=== PATIENT | female | born 1990 | race African-American/Black ===

== ENCOUNTER 2016-10-22 10:02 | Emergency (ER) | payer OTHER ==
[2016-10-22 10:10] VITALS: BP 122/82; TEMP 97.8; BMI 31.1
--- NOTE | 2016-10-22 10:46 | ED.PDOC ---
General ED Provider: Dr. JEFF HAMILTON JR Chief Complaint: Tooth Problem Stated Complaint: PAINFUL RED RAISED AREA INSIDE LEFT UPPER ROOF OF MOUTH NEAR TOOTH WITH CAVITY[End]2 days 97.8 67 16 98% 122/82 12/22[ End ]RAISED AREA ROOF OF MOUTH[ End ]at left upper canine Time Seen by Physician: 10:46 Mode of Arrival: Walk-In Information Source: Patient Exam Limitations: No limitations Primary Care Provider: TATE ELIZONDO Nursing and Triage Documentation Reviewed and Agree: No Review of Systems - Review Of Systems Constitutional: Reports: No symptoms Eyes: Reports: No symptoms Ears, Nose, Mouth, Throat: Reports: Mouth pain, Mouth swelling Respiratory: Reports: No symptoms Cardiac: Reports: No symptoms GI: Reports: No symptoms : Reports: No symptoms Musculoskeletal: Reports: No symptoms Skin: Reports: No symptoms Neurological: Reports: No symptoms Endocrine: Reports: No symptoms Hematologic/Lymphatic: Reports: No symptoms All Other Systems: Other Past Medical History - Past Medical History Previously Healthy: Yes Endocrine: Reports: None Cardiovascular: Reports: None Respiratory: Reports: None Hematological: Reports: None Gastrointestinal: Reports: None Genitourinary: Reports: None Neuro/Psych: Reports: Bipolar Disorder Musculoskeletal: Reports: None Cancer: Reports: None Last Menstrual Period: 2 WEEKS Other Pertinent Past Medical History: TONSILECTOMY - Surgical History General Surgical History: Reports: Tonsillectomy - Family History Family History: Reports: Unknown - Social History Smoking Status: Current some day smoker Hx Substance Use: No Alcohol Screening: Occasionally - Immunizations Tetanus Shot up to Date: Yes Physical Exam - Physical Exam Appearance: Ill-appearing Ill-appearing: Mild Pain Distress: Moderate (left upper palate with raised lesion patient states tende hard- soft on exam) Eyes: KIRTI, EOMI, Conjunctiva clear ENT: Ears normal, Nose normal, Oropharynx normal Neck: Supple Respiratory: Airway patent, Breath sounds clear, Breath sounds equal, Respirations nonlabored Cardiovascular: RRR, Pulses normal, No rub, No murmur GI/: Soft, Nontender, No masses, Bowel sounds normal, No Organomegaly Musculoskeletal: Normal strength, ROM intact, No edema, No calf tenderness Skin: Warm, Dry, Normal color Neurological: Sensation intact, Motor intact, Reflexes intact, Cranial nerves intact, Alert, Oriented Psychiatric: Affect appropriate, Mood appropriate Critical Care Note - Critical Care Note Total Time (mins): 0 Course - Course Vital Signs: Temp Pulse Resp BP Pulse Ox 10/22/16 10:06 97.8 F 67 16 122/82 98 Departure - Departure Time of Disposition: 10:46 Disposition: HOME SELF-CARE Discharge Problem: Cellulitis of canine space of mouth Instructions: Cellulitis (ED), Gingivostomatitis (ED) Condition: Good Pt referred to PMD for follow-up: Yes Additional Instructions: follow up with dentist as soon as possible penicillin antibiotic until gone Motrin for pain [place] for pain not relieved return if fever over 101.0 Prescriptions: Hydrocodone Bit/Acetaminophen [[place] 5-325] 1 - 2 tab PO Q6HR PRN #12 tablet PRN Reason: pain Penicillin V Potassium 500 mg PO QID #28 tablet Allergies/Adverse Reactions: Allergies seafood Allergy (Severe, Uncoded 06/20/15 14:15) n/v, problems breathing Notified pt to get medical alert necklace Home Medications: Ambulatory Orders Hydrocodone Bit/Acetaminophen [[place] 5-325] 1 - 2 tab PO Q6HR PRN #12 tablet 03/31 Penicillin V Potassium 500 mg PO QID #28 tablet 10/22/16
== END 2016-10-22 11:08 | disposition home or self-care (01) ==
LOC: ED 10:02
DX: K12.2 Cellulitis and abscess of mouth (principal); F17.210 Nicotine dependence, cigarettes, uncomplicated
CPT/HCPCS: 99282

== ENCOUNTER 2018-03-07 10:05 | Emergency (ER) | payer OTHER ==
[2018-03-07 10:09] VITALS: BP 137/103; TEMP 98.4; BMI 29.5
[2018-03-07] MEDS ORDERED: ZOFRAN TAB PO STA (10:20)
--- NOTE | 2018-03-07 11:32 | CT ---
Exam: CT scan of the abdomen pelvis without contrast. Date: 03/07/2018. Comparison: 03/30/2010. HISTORY: Abdominal pain and vomiting. TECHNIQUE: Helical scan of the abdomen pelvis was performed without contrast. FINDINGS: The lung bases are clear. The lower lumbar spine and bony pelvis are within normal limits , with an incidental left L5-S1 pseudoarthrosis. The spleen and liver have a uniform attenuation. Gallbladder, stomach, pancreas and adrenal glands a re normal. The kidneys have a normal morphology. No calculi or hydronephrosis is seen. No retroper itoneal adenopathy is present. Aorta does not exceed 3 cm. The small bowel and appendix are normal. The colon, pelvic sidewall and bladder are normal. The uterus and adnexa are normal. There is no free pelvic fluid. The rectum inguinal regions are normal. Impression: No acute findings in the abdomen or pelvis.
--- NOTE | 2018-03-07 12:15 | ED.PDOC ---
General ED Provider: Dr. BROWN PORTER-ER Chief Complaint: Abdominal Pain Stated Complaint: im worried about court date coming up--im nervous and i cant eat Time Seen by Physician: 12:13 Mode of Arrival: Walk-In Information Source: Patient Exam Limitations: No limitations Primary Care Provider: TATE ELIZONDO Nursing and Triage Documentation Reviewed and Agree: Yes Does patient meet sepsis criteria?: No System Inflammatory Response Syndrome: Not Applicable Sepsis Protocol: For patient's 13 years and over: Temp is 96.8 and below OR 101 and greater Pulse >90 BPM Resp >20/minute Acutely Altered Mental Status Are patient's symptoms suggestive of a new infection, such as: -Pneumonia -Skin, Soft Tissue -Endocarditis -UTI -Bone, Joint Infection -Implantable Device -Acute Abdominal Infection -Wound Infection -Meningitis -Blood Stream Catheter Infection -Unknown Psychological Complaint Exam - Psychiatric Complaint/Exam Patient Complains Of: Present: Other (anxiety) Onset/Duration: few days Symptoms Are: Still present Timing: Intermittent Episodes Lasting: Days Initial Severity: Mild Current Severity: Moderate Character: Present: Fearful, Anxious Associated Signs And Symptoms: Denies: Hostile, Confused, Hallucinating, Paranoid behavior, Sleep disturbance, Appetite change Patient In Custody Of Police: No Social Withdrawal Present: No Social Isolation Present: No Prior Suicide Attempt: No Injury From Prior Suicide Attempt: No Related Surgical History: Reports: None Patient Uncooperative For Exam: No Mood: Present: Anxious Appearance: Present: Clean Thought Process: Present: Logical Insight: Present: Poor Memory: Intact Judgement: Normal Danger To Others: No Differential Diagnoses: Anxiety Review of Systems - Review Of Systems Constitutional: Reports: No symptoms Eyes: Reports: No symptoms Ears, Nose, Mouth, Throat: Reports: No symptoms Respiratory: Reports: No symptoms Cardiac: Reports: No symptoms GI: Reports: Nausea : Reports: No symptoms Musculoskeletal: Reports: No symptoms Skin: Reports: No symptoms Neurological: Reports: No symptoms Endocrine: Reports: No symptoms Hematologic/Lymphatic: Reports: No symptoms All Other Systems: Reviewed and Negative Past Medical History - Past Medical History Previously Healthy: Yes Endocrine: Reports: None Cardiovascular: Reports: None Respiratory: Reports: None Hematological: Reports: None Gastrointestinal: Reports: None Genitourinary: Reports: None Neuro/Psych: Reports: Bipolar Disorder Musculoskeletal: Reports: None Cancer: Reports: None Last Menstrual Period: 02/27/18 Other Pertinent Past Medical History: TONSILECTOMY - Surgical History General Surgical History: Reports: Tonsillectomy - Family History Family History: Reports: Unknown - Social History Smoking Status: Current some day smoker Hx Substance Use: No Alcohol Screening: Occasionally - Immunizations Tetanus Shot up to Date: No Physical Exam - Physical Exam Appearance: Well-appearing, No pain distress, Well-nourished Eyes: KIRTI, EOMI, Conjunctiva clear ENT: Ears normal, Nose normal, Oropharynx normal Neck: Supple Respiratory: Airway patent, Breath sounds clear, Breath sounds equal, Respirations nonlabored Cardiovascular: RRR, Pulses normal, No rub, No murmur GI/: Soft, Nontender, No masses, Bowel sounds normal, No Organomegaly Musculoskeletal: Normal strength, ROM intact, No edema, No calf tenderness Skin: Warm, Dry, Normal color Neurological: Sensation intact, Motor intact, Reflexes intact, Cranial nerves intact, Alert, Oriented Psychiatric: Affect appropriate, Mood appropriate, Anxious Interpretation - Radiology Interpretation Radiology Interpretation By: Radiologist Radiology Results: Negative Exam Interpreted: CT Scan Critical Care Note - Critical Care Note Total Time (mins): 0 Course - Course Hematology/Chemistry: 03/07/18 10:32 03/07/18 10:32 Orders, Labs, Meds: Lab Review 03/07/18 03/07/18 03/07/18 10:10 10:32 10:32 WBC 10.42 H RBC 5.24 Hgb 16.2 H Hct 47.8 H MCV 91.2 MCH 30.9 MCHC 33.9 RDW Coeff of Chirag 14.4 Plt Count 255 Immature Gran % (Auto) 0.5 Neut % (Auto) 65.4 Lymph % (Auto) 20.2 [place] % (Auto) 10.3 H Eos % (Auto) 3.2 Baso % (Auto) 0.4 Immature Gran # (Auto) 0.1 Neut # (Auto) 6.8 Lymph # (Auto) 2.1 [place] # (Auto) 1.1 Eos # (Auto) 0.3 Baso # (Auto) 0.0 ESR 2 Sodium 139.0 Potassium 3.85 Chloride 104.4 Carbon Dioxide 27.4 Anion Gap 11.05 BUN 3.3 L Creatinine 0.85 Estimated GFR (MDRD) 97.00 BUN/Creatinine Ratio 3.88 Glucose 96.3 Calcium 9.73 Total Bilirubin 0.57 AST 23.1 ALT 17.8 Alkaline Phosphatase 59.6 Total Protein 7.83 Albumin 4.15 Globulin 3.68 Albumin/Globulin Ratio 1.12 Amylase 71.4 Lipase 32.8 Serum , Qual Urine Color Urine Clarity Urine pH Ur Specific [place] Urine Protein Urine Glucose (UA) Urine Ketones Urine Blood Urine Nitrite Urine Bilirubin Urine Urobilinogen Ur Leukocyte Esterase Ur Squamous Epith Cells Urine Mucus Influ A Molecular Assay Negative by naat Influ B Molecular Assay Negative by naat 03/07/18 03/07/18 10:32 11:42 WBC RBC Hgb Hct MCV MCH MCHC RDW Coeff of [place]ag Plt Count Immature Gran % (Auto) Neut % (Auto) Lymph % (Auto) [place] % (Auto) Eos % (Auto) Baso % (Auto) Immature Gran # (Auto) Neut # (Auto) Lymph # (Auto) [place] # (Auto) Eos # (Auto) Baso # (Auto) ESR Sodium Potassium Chloride Carbon Dioxide Anion Gap BUN Creatinine Estimated GFR (MDRD) BUN/Creatinine Ratio Glucose Calcium Total Bilirubin AST ALT Alkaline Phosphatase Total Protein Albumin Globulin Albumin/Globulin Ratio Amylase Lipase Serum , Qual Negative Urine Color Dark Urine Clarity Slightly Urine pH 8.5 Ur Specific [place] 1.015 Urine Protein 1+ Urine Glucose (UA) Negative Urine Ketones Negative Urine Blood Negative Urine Nitrite Negative Urine Bilirubin Negative Urine Urobilinogen 0.2 Ur Leukocyte Esterase Negative Ur Squamous Epith Cells 50-100 Urine Mucus 1+ Influ A Molecular Assay Influ B Molecular Assay Orders Category Date Time Status AMYLASE Stat LAB 03/07/18 10:32 Completed CBC W/ AUTO DIFF Stat LAB 03/07/18 10:32 Completed COMPREHENSIVE METABOLIC PANEL Stat LAB 03/07/18 10:32 Completed ESR Stat LAB 03/07/18 10:32 Completed FLU A/B MOLECULAR Stat LAB 03/07/18 10:10 Completed LIPASE Stat LAB 03/07/18 10:32 Completed MOLECULAR GROUP A STREP Stat LAB 03/07/18 10:10 Completed SERUM Stat LAB 03/07/18 10:32 Completed URINALYSIS C & S IF INDICATED Stat LAB 03/07/18 11:42 Completed Ondansetron HCl [Zofran Tab] MEDS 03/07/18 10:20 Discontinued 4 mg PO ONCE STA CT ABDOMEN/PELVIS WO CONTRAST Stat RADS 03/07/18 10:20 Completed Medications Discontinued Medications Generic Name Dose Route Start Last Admin Trade Name Freq PRN Reason Stop Dose Admin Ondansetron HCl 4 mg 03/07/18 10:20 03/07/18 10:27 Zofran Tab PO 03/07/18 10:21 4 mg ONCE STA Administration Vital Signs: Temp Pulse Resp BP Pulse Ox 03/07/18 10:05 98.4 F 100 H 18 137/103 H 98 Departure - Departure Time of Disposition: 12:15 Disposition: HOME SELF-CARE Discharge Problem: Anxiety Instructions: Anxiety (ED) Condition: Good Pt referred to PMD for follow-up: Yes IPMP verified?: No Additional Instructions: lexapro 10mg #15---zofran 4mg q 4hrs prn #6--f/u with pcp Allergies/Adverse Reactions: Allergies seafood Allergy (Severe, Uncoded 03/07/18 10:09) n/v, problems breathing Notified pt to get medical alert necklace Home Medications: Ambulatory Orders 1 [No Reported Medications] 03/07/18 Disposition Discussed With: Patient
== END 2018-03-07 12:26 | disposition home or self-care (01) ==
LOC: ED 10:05
DX: F41.9 Anxiety disorder, unspecified (principal); F17.210 Nicotine dependence, cigarettes, uncomplicated
CPT/HCPCS: 36415; 80053; 81001; 82150; 83690; 84703; 85025; 85651; 87502; 87651; 99284